=== PATIENT | male | born 1940 | race Caucasian/White ===

== ENCOUNTER 2019-06-20 09:57 | Inpatient (IN) | payer MEDICARE, SELFPAY ==
[2019-06-06 08:45] VITALS: BMI 26.4
[2019-06-20] VITALS (16 sets, daily range): BP systolic 106–144; BP diastolic 66–99; PULSE 45–92; RESP 12–20; TEMP 35.9–37.1; O2SAT 92–100; BMI 26.4
--- NOTE | 2019-06-20 | DI.RAD.S_ITS ---
PROCEDURE: XR HIP W PEL IF DONE RT 4V INDICATIONS: ANTERIOR RT HIP ARTHROPLASTY TECHNIQUE: 2 view(s) of the hip acquired. COMPARISON: [facility] [place], [place], XR PELVIS WITH BILATERAL LATERAL HIPS, 03/28/2019, 14:50. FINDINGS: Bones: Patient is status post right hip arthroplasty, with hardware components in expected positions. The hip joint appears congruent. The visualized bony structures appear intact. Soft tissues: Overlying postoperative changes are noted and there is normal alignment after reported right hip arthroplasty. No suspicious soft tissue densities. IMPRESSION: Reported right hip arthroplasty, normal alignment established. Dictated by: Benoit Torrez M.D. on 06/20/2019 at 16:02 Approved by: Benoit Torrez M.D. on 06/20/2019 at 16:04
--- NOTE | 2019-06-20 06:00 | DI.RAD.S_ITS ---
PROCEDURE: XR HIP W PEL IF DONE RT 2V INDICATIONS: post op films TECHNIQUE: AP pelvis and lateral view of the right hip acquired. COMPARISON: [facility], CR, XR HIP W PEL IF DONE RT 4V, 06/20/2019, 15:00. [facility], CR, XR PELVIS WITH BILATERAL LATERAL HIPS, 03/28/2019, 14:50. FINDINGS: Bones: Patient is status post right hip arthroplasty, with hardware components in expected positions. The hip joint appears congruent. The visualized bony structures appear intact. Soft tissues: Overlying postoperative changes are noted. No suspicious soft tissue densities. IMPRESSION: Right hip arthroplasty with prosthesis in anatomic alignment. Dictated by: Oliva Jimenez M.D. on 06/20/2019 at 17:31 Approved by: Oliva Jimenez M.D. on 06/20/2019 at 17:32
[2019-06-20] MEDS: VANCOMYCIN 1,000 MG/200 ML PIGGYBACK 200 MG IV (10:45)
[2019-06-20] MEDS: ACETAMINOPHEN 325 MG TABLET 975 MG PO (10:57)
[2019-06-20] MEDS: MELOXICAM 7.5 MG TABLET 15 MG PO (10:57)
[2019-06-20] MEDS: PREGABALIN 75 MG CAPSULE PO (10:57)
[2019-06-20] MEDS: LACTATED RINGERS 1,000 ML 42 ML IV ×2 (10:57→14:55)
--- NOTE | 2019-06-20 11:23 | PM.PREOP ---
Pre-operative Note Interval Note History & Physical reviewed/Exam performed by Physician: Yes Changes to H&P: No
--- NOTE | 2019-06-20 11:24 | PM.OP.1 ---
Operative Date/Time/Diagnoses Date of procedure: 06/20/19 Time of procedure: 12:33 Pre-op diagnosis: Right hip osteoarthritis Post-op diagnosis: same Procedure & Clinicians Procedure: Right total hip arthroplasty anterior approach Indications: The patient has had progressively worsening right hip pain with radiographic changes consistent with arthritis. Non-operative management has failed and the patient has requested total hip replacement. The risks, benefits and alternatives to surgery were discussed with the patient prior to proceeding. Risks discussed included, but were not limited to, failure to relieve pain, leg length discrepancy, dislocation, stiffness, infection, nerve damage, deep venous thrombosis, pulmonary embolism, stroke, coma, heart attack, permanent paralysis and , as well as the potential need for eventual revision of the prosthetic. Surgeon: Heidi Doss Pulmonary Function Technologist: Wale Chang Anesthesia Type: General and Spinal Operative Notes Findings: Severe right hip osteoarthritis, good stability, adequate bone Closure Type: primary Specimen(s): none sent Prosthetic devices, grafts, tissues, transplants, or devices: Doss [employer]hew size 6 high offset anthology, R3 56, 36 by -3 oxinium Estimated Blood Loss (mL): 250 Blood products transfused: none Procedure in detail: The patient was brought to the operating room. Patient was carefully positioned in the supine position. Time-out was performed and antibiotics were given. Anesthesia was induced. She was positioned in the on the table in order to allow hyperextension of the hip. The right lower extremity was prepped and draped in a standard sterile fashion. An anterior right hip incision was made 1 fingerbreadth lateral to the anterior superior iliac spine and extended distally towards the greater trochanter. Dissection was carried out through skin and subcutaneous tissues. The skin and subcutaneous tissues were carefully injected with Marcaine. Superficial hemostasis was achieved. The fascia over the tensor fascia fran was defined and incised with a knife. Two Allis clamps were used to grasp the fascia. Tensor fascia fran was retracted laterally. A gelpi retractor was placed. Dissection was carried out down along the neck. The circumflex vessels were carefully identified and cauterized with the Aqua Mantis. There was good visualization of the femoral neck. A Cobra was placed superior to the neck and the gluteus fibers were carefully stripped from that superior aspect of the capsule. A 2nd retractor was placed along the inferior aspect of the neck. The rectus insertion along the capsule was partially released. A 3rd retractor that was then gently placed over the rim of the acetabulum under the rectus. Capsule was carefully incised and released from the intertrochanteric line circumferentially superior to the mid sagittal line and inferiorly to the mid sagittal line until the lesser trochanter was palpable. A tag stitch was placed both in the superior and inferior limb of the capsular insertion. Along the acetabulum capsule was also released up to the mid sagittal 12:00 position. A portion of the labrum was resected. A saw was used to perform an osteotomy at the level of the intertrochanteric line and the junction of the superior femoral neck leaving approximately 1 finger breath of residual inferior neck above the lesser trochanter. A 2nd cut was made along the femoral neck at the base of the head and a napkin ring of neck was removed. Corkscrew was placed in the femoral head and the head was removed without difficulty. Retractors were then repositioned around the acetabulum. Residual labrum was resected and additional osteophytes were removed. A reamer that was 4 mm below the templated size was placed by hand in the acetabulum and it was reamed to centralize the acetabulum. It was then reamed up to 2 under the templated size and fluoroscopy was brought in to confirm the position of the reaming and depth of reaming. I reamed 1 under the anticipated size and touched the rim with line to line reaming. A trial cup was placed and noted that it was appropriately sized and fluoroscopy confirmed position and depth. The component was open and inserted without difficulty fluoroscopic imaging was used to confirm that the cup had been adequately seated and was well positioned. Neutral poly trial liner was placed. The cup was tested and noted to be stable. Attention was then directed to the femur. The femur was gently hyperextended additional capsular release was performed as needed in order to allow adequate visualization of the proximal femur with elevation of the femur. Patient was placed in a hyperextended slightly adducted position with maximum external rotation. Box osteotome was used to check for any residual neck as well as sclerotic bone along the trochanter. [place] pepper was placed in the femur. Additional broaching was performed. Canal finder was used to determine the alignment of the canal and position. Size 1 broach was placed. The canal was then appropriately broached. It was fairly tight and I specifically lateralized the femur There was no impingement laterally. There was adequate stability of the broach and serial advancement of the broach without excessive impingement. Specific attention was directed at avoiding varus attempting to direct the distal aspect of the broach more anteriorly and avoiding excessive anteversion. Trial reduction showed acceptable range of motion, good stability, no posterior impingement, zoroastrian of leg length and appropriate lateral shuck. I also hyperflexed the hip and checked that there was no impingement anteriorly and there was good stability with flexion, adduction and internal rotation. Marcaine and Exparel were injected. The stem was placed without difficulty. Repeat trial reduction and x-ray showed acceptable overall position, length, and no evidence of the femoral fracture. Final head was placed. Wound was meticulously irrigated with normal saline. The hip was reduced and additional Exparel and Marcaine were injected. The capsule was closed with interrupted nonabsorbable sutures. The fascia of the tensor was closed with interrupted and running Vicryl. No drain was placed. Any tensor fascia fran muscle that appeared to be contused or injured which was a minimal amount was carefully resected. Capsule around the tensor was injected with Exparel and Marcaine. The skin was closed with barbed stitches for the subcutaneous tissue and skin. We also used surgical glue. The wound was dressed sterilely. Brief Betadine soak was also used and was meticulously irrigated with normal saline. Patient was transferred to recovery room in satisfactory condition. Complications: none Post-operative Condition: stable Disposition: Acute Care Plan for aftercare: The patient will be maintained on a standard total hip replacement protocol with weight bearing as tolerated and anterior hip precautions. The patient will receive Aspirin and sequential compression devices for DVT prophylaxis. The patient will be discharged home when safe for the home environment.
[2019-06-20] MEDS: CEFAZOLIN 2 GM/100 ML FROZ.PIGGY IV ×2 (12:30→20:48)
--- NOTE | 2019-06-20 13:03 | SUR.OPER ---
Supine on padded [place] table with bilateral legs secured in padded positioning boots and suspended in positioning spars, operative leg in traction per surgeon. Head on one pillow. Arm on non-operative side secured on padded armboard <90 degrees abduction. Arm on operative side padded and resting across chest then secured with tape over sheet. Padded perineal post in place per surgeon.
[2019-06-20] MEDS: TRANEXAMIC ACID 1,000 MG VIAL 1000 MG IV ×2 (13:08→15:29)
[2019-06-20] MEDS: BUPIVACAINE LIPOSOME 266 MG/20 ML VIAL INJ (13:08)
[2019-06-20] MEDS: BUPIVACAINE 0.25% W/ EPI (PF) 10 ML VIAL 20 ML INJ (13:08)
[2019-06-20] MEDS: SODIUM CHLORIDE IRRIG SOLUTION 250 ML, POVIDONE-IODINE SPONGE STICKS 1 APPLIC IRR (15:42)
--- NOTE | 2019-06-20 17:43 | PC.NURSE ---
Pt arrived to room 216. RLE cool to touch but reports sensation. Able to wiggle toes and has PPP. Denies pain. A/O. VSS. 2L NC sats 98-100%. Oriented to room and call system. Urinal placed at bedside. Dietary notified of pt's arrival and meal tray requested. Supportive dtr at bedside.
[2019-06-20] MEDS: LACTATED RINGERS 1,000 ML 125 ML IV (18:27)
[2019-06-20] MEDS: SIMVASTATIN 40 MG TABLET PO (18:28)
[2019-06-20] MEDS: METOPROLOL ER 50 MG TABLET PO (18:28)
[2019-06-20] MEDS: ACETAMINOPHEN 325 MG TABLET 650 MG PO (20:48)
[2019-06-20] MEDS: DOCUSATE 100 MG CAPSULE PO (20:48)
[2019-06-21] VITALS (9 sets, daily range): BP systolic 104–132; BP diastolic 51–81; PULSE 63–95; RESP 16–17; TEMP 36.5–37.5; O2SAT 95–97
[2019-06-21] MEDS: LACTATED RINGERS 1,000 ML 125 ML IV (02:56)
[2019-06-21] MEDS: CEFAZOLIN 2 GM/100 ML FROZ.PIGGY IV (04:44)
[2019-06-21 06:13] LABS: Hematocrit 39.8 % (41-53); Hemoglobin 13.4 g/dL (13.5-17.5)
[2019-06-21] MEDS: OXYCODONE IR 5 MG TABLET PO ×5 (06:17→21:25)
--- NOTE | 2019-06-21 06:31 | PC.NURSE ---
NOC Note: Pt is alert, drsg DCI, CMS +, PP++ and patient did not have pain until approx 6am, PRN oxycodone given at that time. Pt has been using the urinal while in bed.
[2019-06-21] MEDS: DOCUSATE 100 MG CAPSULE PO ×2 (09:54→21:25)
[2019-06-21] MEDS: PANTOPRAZOLE 20 MG TABLET PO (09:54)
[2019-06-21] MEDS: ACETAMINOPHEN 325 MG TABLET 650 MG PO ×3 (09:55→21:25)
--- NOTE | 2019-06-21 10:25 | DI.CT.S_ITS ---
PROCEDURE: CT PEL WO CON INDICATIONS: Rule out lesser trochanteric fracture, po R RHONDA. TECHNIQUE: Noncontrast 3 mm axial sections acquired through the bony pelvis, with coronal and sagittal reformatting. COMPARISON: [facility], CR, XR HIP W PEL IF DONE RT 2V, 06/20/2019, 16:24. [facility] [place], CR, XR PELVIS WITH BILATERAL LATERAL HIPS, 03/28/2019, 14:50. [facility], CR, XR HIP W PEL IF DONE RT 4V, 06/20/2019, 15:00. FINDINGS: Image quality: Excellent. Bones: Normal alignment after right total hip arthroplasty. No postoperative hematoma. Soft tissues: Somewhat vertically oriented near vertically oriented postoperative gas is identified both medially and laterally within the soft tissues, adjacent to the operative bed on the right. This also can be seen on prior postoperative and intraoperative plain film imaging. IMPRESSION: The initial digital acquisition imaging immediately at the termination of the operative procedure had shown small amounts of vertically oriented gas in the intramuscular fascial planes adjacent to the operative bed. This is an expected finding. The subsequent 2 views, postoperative, had raised concern for possible fracture along the base of the lesser trochanter. That area and elsewhere along the operative bed is well visualized by CT scanning and no fractures found to small amounts of vertically oriented gas are again noted in the intramuscular fascial planes of the adjacent operative bed. It is possible that a linear gas band within the soft tissues produced the lucency mimicking a fracture at the base of the lesser trochanter. Dictated by: Benoit Torrez M.D. on 06/21/2019 at 10:59 Approved by: Benoit Torrez M.D. on 06/21/2019 at 11:06
--- NOTE | 2019-06-21 10:27 | P.PN_ITS ---
Subjective Subjective Date Patient Seen: 06/21/19 Time Patient Seen: 10:27 Interval history: Hospital day 2, postop day 1 following right anterior total hip arthroplasty by Dr. Doss. He has remained stable postoperatively. He has not been out of bed yet and has not had physical therapy. Pain controlled with oxycodone 5 mg. On his postop x-ray there was noted to be a irregular lucency to the lesser trochanteric area suggestive of fracture. This was reviewed by Dr. Doss in myself. There was no such lucency noted on any of the other x-rays. Exam Vital Signs (past 8 hours): - 06/21/19 04:30 06/21/19 07:17 06/21/19 08:00 Temperature 97.7 F 97.8 F Pulse Rate 63 73 Respiratory Rate 17 Blood Pressure 112/51 L 132/81 Pulse Oximetry 95 95 97 06/21/19 10:24 Temperature Pulse Rate Respiratory Rate 16 Blood Pressure Pulse Oximetry 97 Oxygen Delivery Method Room Air Oxygen Flow Rate 1 Narrative Exam Narrative: Alert, oriented in no acute distress sitting on the edge of bed with PT. Legs. Aquacel dressing to right anterior hip is dry without drainage or inflammation. Areas of bruising to the area. No calf pain or swelling. P ulses symmetrical. Objective Labs Result Diagrams: 06/21/19 05:44 Labs: Laboratory Results - last 24 hr 06/21/19 05:44 Hgb 13.4 L Hct 39.8 L Assessment & Plan Post-op Postoperative Procedures: Procedures Operation Date: 06/20/19 12:15 Actual Procedures Side Surgeon p Total Hip Arthroplasty/Anterior Approach Right Heidi Doss MD Plan: Will obtain pelvic CT scan without contrast to rule out lesser trochanteric fracture to determine further therapy and weight-bearing status. At this time he will be 25% weight-bearing to the right leg until cleared by CT scan. He is scheduled go to [facility] in [place]. He will restart his Xarelto today. If his CT scan is negative for fracture he may gradually increase his weight-bearing and activity as tolerated. Quality VTE Deep Vein Thrombosis/Pulmonary Embolism Present on Admission: No
--- NOTE | 2019-06-21 12:05 | PT.IIE ---
Current Diagnoses Unilateral primary osteoarthritis, right hip (06/20/19) Surgery Performed Operation Date: 06/20/19 12:15 Actual Procedures p Total Hip Arthroplasty/Anterior Approach(Right) - Heidi Doss MD Surgical History (Last Updated 06/06/19 @ 08:51 by Rachelle Meraz, RN) History of arthroscopy of both knees (Acute) History of lumbar spinal fusion (Acute) S/P left unicompartmental knee replacement (Acute) Medical History (Last Updated 06/06/19 @ 09:20 by Rachelle Meraz RN) A-fib (Acute) Anxiety (Acute) Depression (Acute) GERD (gastroesophageal reflux disease) (Acute) Hearing loss (Acute) HLD (hyperlipidemia) (Acute) HTN (hypertension) (Acute) Osteoarthritis (Acute) TIA (transient ischemic attack) (Acute ~2008) Physical Therapy Inpatient Evaluation/Re-Eval M1 PT/OT-IP Prior Functional Status Start: 06/21/19 08:15 Freq: NEEDED Status: Active Protocol: Document 06/21/19 08:46 Bubba (Rec: 06/21/19 11:08 Bubba [id number]) Medical Review Prior Functional Status Medical History Reviewed Yes Diet/Fluid Consistency Regular Communication No noted cognitive deficits. Pt is mildly hard of hearing. Able to make needs known. Mobility and Gait Pt reports I with mobility and gait prior to surgery with limited tolerance d/t R hip pain. Pt reports he usually didn't use an AD but did occasionally use a SPC d/t pain. Activities of Daily Living and IADL's Pt reports I with ADLs and IADLs but limited tolerance d/ t pain prior to surgery. Prior Functional Level (Other details) Pt was driving prior to surgery. Social History Household Members children Living Arrangements House Number of Floors (Floors) One Floor Number of Stairs To Enter/Railing? 3 A[address]LA[address] house (R railing ascending to enter in front, B railings to enter in back) 1 [address] trailer (handles B) where pt typically sleeps No ADELAIDA garage Home Environment High Toilet,Walk in Shower,Tub /Shower Home Equipment Straight Cane,Raised Toilet Seat w/Armrests,Hand Held Shower Employment Status Retired Additional Social History Comment Pt lives at home in [facility] with his adult daughter and 3 young grandchildren. Pt lives at one-story home but typically sleeps in small trailer behind house which has 1 A[place]LA[address]. Pt states he has set up and bed and bathroom in the garage, which has no ADELAIDA, to stay in for a short time as he recovers from surgery. Pt notes that his daughter works brazing machine setter but he has 2 other daughters living nearby that can assist him as needed as well. Pt states he has a SPC and a pickup walker at home but he can ask his daughters to pickling solution maker wheels for hip pickup walker. M2 PT-IP Current Condition Start: 06/21/19 08:15 Freq: NEEDED Status: Active Protocol: Document 06/21/19 08:46 KRYSTYNA (Rec: 06/21/19 11:08 KRYSTYNA [id number]) Physical Therapy Current Condition Current Condition Evaluation Date 06/21/19 Treatment Diagnosis R RHONDA, impaired bed mobility, difficulty walking, limited activity fannie Onset Date 04/20/19 Precautions Anterior Hip Precautions No Hip Extension,No Hip External Rotation Weight Bearing Status Weight Bearing Status Partial Weight Bearing Allowed Weight Bearing Amount (enter % 25% WBing R LE or #) (%) LIAN Hill verbal orders at start of session for 25% WBing on R LE until cleared by CT d/t potential lesser trochanteric fx M3 PT-IP Subjective Start: 06/21/19 08:15 Freq: NEEDED Status: Active Protocol: Document 06/21/19 08:46 JDejon (Rec: 06/21/19 11:08 KRYSTYNA [id number]) Subjective Physical Therapy Visit Type Type Initial Evaluation Visit Start Time 08:46 Visit Stop Time 09:28 Total Visit Minutes 42 Notes IE led by EVI Moctezuma, supervised by PT Avery Number of FABRICATOR ARTIFICIAL BREAST Visits 0 Physical Therapy Visit Comments Patient Comments My hip is bothering me but it isn't horrible. I thought I might be able to go home today but it seems like maybe tomorrow. Patient Goals Return home Therapy Pain Assessment Pain When Pain Assessed At Rest Pain Present Pain Present Pain Reported Location Right Hip Intensity 5 Scale Used Numeric (1 - 10) Description Aching,Acute,Sharp,With Movement Pain Behaviors Wincing Pain Management Techniques Distraction,Timing of Activity with Medications M4 PT-IP Mobility and Gait Start: 06/21/19 08:15 Freq: NEEDED Status: Active Protocol: Document 06/21/19 08:46 JDejon (Rec: 06/21/19 11:08 KRYSTYNA [id number]) PT-Bed Mobility Assessment Supine to Sit Supine to Sit Moderate Assistance,2 Person Assistance Scooting Scooting to Edge of Bed Moderate Assistance PT-Transfer Assessment Sit to and From Stand Sit to and from Stand Minimal Assistance,Moderate Assistance,1 Person Assistance ,Use of Upper Extremities Equipment Transfer Assistive Device Gait Belt,Front Wheeled Walker Orthotic/Prosthetic Devices or Brace: No Transfers Transfer Destination Chair Transfer Technique ambulate with FWW Transfer Ability Level of Assist Minimal Assistance,1 Person Assistance,Use of Upper Extremities Comments Mobility Comments Pt in bed upon assessment. Resting BP 134/71, pt denies nausea or dizziness during mobility. Educated pt on ant hip precautions and pt verbalized understanding. Pt required mod Ax2 for supine to sit and scooting to EOB with max cuing to use UEs to assist with mobility. Educated pt on WBing restriction of 25% on R LE. Instructed pt in stagger stance for sit to/from stand to maintain WBing restriction. Pt required min A to stand. Pt ambulated within room ~10 ft with small steps and step to gait pattern, mostly CGA but min A when turning for stability. Pt required mod cuing to cont WBing mostly through UEs and only place 25% of weight through R LE. Pt required mod A for stand to sit with pillow on chair to raise seat and inc'd time to sit. Pt left in chair with call lights and needs within reach and chair alarm armed. Notified ORION Melvin of new WBing orders and transfer method. Gait Assessment Gait Gait Assistance Required: Contact Guard Assist,Minimum Assistance Distance (Feet) 10 Able to Maintain Weight Bearing Status Yes During Gait Assistive Devices Assistive Device Gait Belt,Front Wheeled Walker Orthotic/Prosthetic Devices or Brace: No Gait Deviations General Gait Pattern Antalgic,Decreased Stride Length,Decreased Feet Clearance,Flexed Trunk,Step-to Gait Factors Limiting Gait Function Factors Limiting Gait Function Decreased Activity Tolerance, Decreased Strength,Difficulty Following Directions,Limited Range of Motion,Pain,Poor Balance,Poor Safety Awareness Comments Gait Comments see mobility comments Stair Climbing Assessment Comments Stair Climbing Comments not assessed PT-Balance Assessment Sitting Balance and Reactions Static Sitting Balance Ability Good Dynamic Sitting Balance Ability Fair Standing Balance and Reactions Static Standing Balance Ability Good Dynamic Standing Balance Ability Fair Device Used FWW M5 PT-IP Objective Assessments Start: 06/21/19 08:15 Freq: NEEDED Status: Active Protocol: Document 06/21/19 08:46 JG (Rec: 06/21/19 11:08 Bubba [id number]) Orientation Orientation/Cognition Level of Alertness Alert Orientation Name,Day of Week,Place, Situation Language Function Ability Hard of Hearing Safety Awareness Decreased Safety Awareness Memory Description No Deficits Noted Comments Pt is mildly hard of hearing. Pt seemed mildly confused during session and required max cuing for use of UE assist during bed mobility and ambulation. Pt required frequent cuing throughout session d/t dec'd safety awareness. Gross Range of Motion Upper Extremity ROM Assessment Within Functional Limits Lower Extremity ROM Assessment Right Impaired Strength Upper Extremity Strength Assessment Within Functional Limits Lower Extremity Strength Assessment Right Impaired Hip 4 Knee 4 Ankle 4 Sensation Assessment Sensation Gross Sensation WNL Muscle Tone Muscle Tone WNL Yes M6 PT-IP Treatment Start: 06/21/19 08:15 Freq: NEEDED Status: Active Protocol: Document 06/21/19 08:46 JG (Rec: 06/21/19 11:08 Bubba [id number]) Physical Therapy Treatment Exercises Exercises Ankle Pumps,Heel Slides Education Education Provided Precautions,Weight Bearing Status,Post-Op Packet,Safety Other Treatments Other Treatment Performed Disc benefit of getting wheels to modify pickling solution maker walker at home into FWW, improved ease of movement and safety. Provided pt with list of vendors to acquire wheels for walker. Pt noted that he would ask daughter to look into it. M7 PT-IP Assessment and Plan Start: 06/21/19 08:15 Freq: NEEDED Status: Active Protocol: Document 06/21/19 08:46 JG (Rec: 06/21/19 11:08 Bubba [id number]) PT Summary Assessment and Plan Potential Rehabilitation Potential Good Status of Condition at Evaluation Evolving Summary Impairments Pain,ROM,Strength,Balance, Cognition,Bed Mobility, Transfers,Gait,Activity Tolerance Assessment Summary Pt is mod complexity 78 yo male 1 day s/p R RHONDA anterior approach. Pt required mod Ax2 for bed mobility d/t pain and mild confusion. Pt required no more than mod Ax1 for transfers or ambulation. Pt currently 25% WBing on R LE until CT scan d/t concerns of potential lesser trochanteric fx. Pt required cuing during session to use B UE support to maintain WBing status. PT will cont to assess pt's assist needs after CT scan. PT currently recommends d/c to home with assist from daughter once caregiver training complete and pt medically cleared. Goals Bed Mobility Goal Independent Transfer Goal Independent Gait Goal Independent Gait Distance 150 Days to Meet Goals 5 Frequency of Treatment Frequency Of Treatment Twice a Day Treatment Plan Physical Therapy Treatment Plan Bed Mobility Training,Transfer Training,Gait Training, Therapeutic Exercise,Balance Retraining,Post Op Education, Discharge Planning,Hot or Cold Pack,Neuromuscular Re-ed Other Recommendations and Next Treatment Bed mobility training Focus Stair training as fannie (pt has steps at home but does not need to complete prior to d/c) Recommendations To Nursing Amount of Assist Needed 2 Person Assist Discharge Recommendations PT Discharge Recommendations Home with Assistance,Home with 06/02 Assist,Home Health, Outpatient PT note reviewed by Avery Barrera, PT
--- NOTE | 2019-06-21 12:09 | CM.IDA ---
Initial DCP Assessment Note: Pt is a 78 yo male, resident of [place]. Pt is POD#1 from hip surgery w/ Dr Doss. PCP: Martina Golden Payer: [employer] Medicare Attempted to meet w/pt this morning and he stated he was waiting on results from a CT scan ordered by Ortho to r/o new fx. This SUMO WRESTLER will return to complete assessment later today or tomorrow. Pt expects to return home w/assist from his local dtrs. In review of the chart, fx has now been ruled out by CT and WBing status confirmed WBAT, PT has assessed and it is likely pt will be able to safely return home w/family to assist 06/02. This SUMO WRESTLER will follow closely and r/o need for HH closer to [place]. FATOU Hargrove Discharge Planning/Care Management CM Discharge Assessment Start: 06/21/19 12:02 Freq: Status: Active Protocol: Document 06/21/19 12:02 ANDREEA (Rec: 06/21/19 12:09 ANDREEA [id number]) Discharge Planning Assessment Assigned Child Support Agent FATOU Ramos DPOA/Assigned Designee Name jolanta Lockwoodr , Anjana (daughter) Contact Information Taras: [phone] Anjana: [phone] Advance Directives? Yes Advance Directives on File No History Provided By Patient,Medical Record Prior Living Arrangements House Household Members children Independent with ADL's Yes: cane Is patient alert and oriented? Yes Comment Needs further assessment of [place] needs Discharge Plan Home Transportation Arrangement Family Review Status In Process
--- NOTE | 2019-06-21 12:12 | PT-IP ANOTE ---
Lazaro Hill P.A-C just updated pt new CT scan that pt is cleared for lesser trochanter fx. Changed WB status to WBAT.
--- NOTE | 2019-06-21 14:33 | PC.NURSE ---
Day Shift- Pt A&OX4, able to make needs known using call light. Pain controlled with prn Oxycodone, rates 4/10 rest and 5-6/10 movement. Oxycodone prn given X2 at 0955 & 1330 prior to PT session. Anterior hip aquacel dressing CDI, CMS+, PPP, ice pack intermittently. Pt went for CT scan at 1035 via bed. Per LIAN Lange at 1155, pt will be WBAT now. Pt aware. Plan for discharge tomorrow pending PT sessions, pt agreeable. No other voiced concerns.
[2019-06-21] MEDS: SIMVASTATIN 40 MG TABLET PO (16:36)
[2019-06-21] MEDS: RIVAROXABAN 10 MG TABLET 20 MG PO (16:36)
[2019-06-21] MEDS: METOPROLOL ER 50 MG TABLET PO (16:37)
--- NOTE | 2019-06-21 16:47 | PT.IPTN ---
Current Diagnoses Unilateral primary osteoarthritis, right hip (06/20/19) Surgery Performed Operation Date: 06/20/19 12:15 Actual Procedures p Total Hip Arthroplasty/Anterior Approach(Right) - Heidi Doss MD Physical Therapy Treatment Note M2 PT-IP Current Condition Start: 06/21/19 08:15 Freq: NEEDED Status: Active Protocol: Document 06/21/19 08:46 JG (Rec: 06/21/19 11:08 JG [id number]) Physical Therapy Current Condition Current Condition Evaluation Date 06/21/19 Treatment Diagnosis R RHONDA, impaired bed mobility, difficulty walking, limited activity fannie Onset Date 04/20/19 Precautions Anterior Hip Precautions No Hip Extension,No Hip External Rotation Weight Bearing Status Weight Bearing Status Partial Weight Bearing Allowed Weight Bearing Amount (enter % 25% WBing R LE or #) (%) LIAN Hill verbal orders at start of session for 25% WBing on R LE until cleared by CT d/t potential lesser trochanteric fx M3 PT-IP Subjective Start: 06/21/19 08:15 Freq: NEEDED Status: Active Protocol: Document 06/21/19 14:07 IRENE (Rec: 06/21/19 15:43 IRENE [email or web address]) Subjective Physical Therapy Visit Type Type Treatment Note Visit Start Time 14:07 Visit Stop Time 14:29 Total Visit Minutes 22 Notes Treatment supervised by PAU Traore. Number of SPLINE ROLLING MACHINE JOB SETTER Visits 1 Physical Therapy Visit Comments Patient Comments Pt is agreeable to work with PT and offers that he is experiencing less pain. Patient Goals Return home Therapy Pain Assessment Pain When Pain Assessed During Weight Bearing Pain Present Pain Present Pain Reported Location Right Hip Scale Used hurts a little bit Pain Management Techniques Apply Cold,Re-positioning M4 PT-IP Mobility and Gait Start: 06/21/19 08:15 Freq: NEEDED Status: Active Protocol: Document 06/21/19 14:07 IRENE (Rec: 06/21/19 15:43 IRENE [id number]) PT-Bed Mobility Assessment Supine to Sit Supine to Sit Minimal Assistance,1 Person Assistance,Head of Bed Elevated,Bedrails Sit to Supine Sit to Supine Minimal Assistance,1 Person Assistance Scooting Scooting to Edge of Bed Contact Guard Assistance Scooting Up and Down in Bed Moderate Assistance PT-Transfer Assessment Sit to and From Stand Sit to and from Stand Contact Guard Assistance, Minimal Assistance,1 Person Assistance,Use of Upper Extremities Equipment Transfer Assistive Device Gait Belt,Front Wheeled Walker Orthotic/Prosthetic Devices or Brace: No Transfers Transfer Destination Bed Transfer Technique pt ambulated w/ FWW Transfer Ability Level of Assist Minimal Assistance,1 Person Assistance,Use of Upper Extremities Comments Mobility Comments Pt was in bed upon arrival of PT. Pt was Min A sup<>sit requiring assistance of R LE out of bed. CGA for scooting towards EOB. CGA to Min A for sit<>stand w/ FWW and use of UE. Sit<>sup Min A for R LE guidance. Instructed pt on how to utilize gait belt to self assist R LE. Mod A x2 to scoot pt up in bed. Pt left in bed w/ all needs in reach and SCDs on. Gait Assessment Gait Gait Assistance Required: Contact Guard Assist,Minimum Assistance Distance (Feet) 80 Able to Maintain Weight Bearing Status Yes During Gait Assistive Devices Assistive Device Gait Belt,Front Wheeled Walker Orthotic/Prosthetic Devices or Brace: No Gait Deviations General Gait Pattern Antalgic,Decreased Stride Length,Decreased Feet Clearance,Flexed Trunk Factors Limiting Gait Function Factors Limiting Gait Function Decreased Activity Tolerance, Decreased Strength,Difficulty Following Directions,Limited Range of Motion,Pain,Poor Balance,Poor Safety Awareness Comments Gait Comments Pt ambulated ~80 ft from bed into hallway w/ FWW and CGA. Reported very little pain during ambulation. Cues to not slat pickler FWW when ambulating and to stay inside walker. Pt was able to increase stride length when instructed to focus on heel-toe walking. Stair Climbing Assessment Comments Stair Climbing Comments not assessed PT-Balance Assessment Sitting Balance and Reactions Static Sitting Balance Ability Good Dynamic Sitting Balance Ability Fair Standing Balance and Reactions Static Standing Balance Ability Good Dynamic Standing Balance Ability Fair Device Used FWW M5 PT-IP Objective Assessments Start: 06/21/19 08:15 Freq: NEEDED Status: Active Protocol: Document 06/21/19 08:46 KRYSTYNA (Rec: 06/21/19 11:08 KRYSTYNA [id number]) Orientation Orientation/Cognition Level of Alertness Alert Orientation Name,Day of Week,Place, Situation Language Function Ability Hard of Hearing Safety Awareness Decreased Safety Awareness Memory Description No Deficits Noted Comments Pt is mildly hard of hearing. Pt seemed mildly confused during session and required max cuing for use of UE assist during bed mobility and ambulation. Pt required frequent cuing throughout session d/t dec'd safety awareness. Gross Range of Motion Upper Extremity ROM Assessment Within Functional Limits Lower Extremity ROM Assessment Right Impaired Strength Upper Extremity Strength Assessment Within Functional Limits Lower Extremity Strength Assessment Right Impaired Hip 4 Knee 4 Ankle 4 Sensation Assessment Sensation Gross Sensation WNL Muscle Tone Muscle Tone WNL Yes M6 PT-IP Treatment Start: 06/21/19 08:15 Freq: NEEDED Status: Active Protocol: Document 06/21/19 14:07 IRENE (Rec: 06/21/19 15:43 IRENE [id number]) Physical Therapy Treatment Education Education Provided Weight Bearing Status,Safety M7 PT-IP Assessment and Plan Start: 06/21/19 08:15 Freq: NEEDED Status: Active Protocol: Document 06/21/19 14:07 IRENE (Rec: 06/21/19 15:43 IRENE [id number]) PT Summary Assessment and Plan Potential Rehabilitation Potential Good Status of Condition at Evaluation Evolving Summary Impairments Pain,ROM,Strength,Balance, Cognition,Bed Mobility, Transfers,Gait,Activity Tolerance Assessment Summary Pt showed improvements w/ bed mobility and ambulation this treatment. Min A for sup<>sit and sit<>sup for assistance w/ R LE. CGA for scooting EOB, Mod A x2 for scooting up in bed. Ambulated ~80 ft w/ FWW and cues to stay inside walker and to not pick it up. Increased stride length when reminded to perform heel toe walking. Goals Bed Mobility Goal Independent Transfer Goal Independent Gait Goal Independent Gait Distance 150 Days to Meet Goals 5 Frequency of Treatment Frequency Of Treatment Twice a Day Treatment Plan Physical Therapy Treatment Plan Bed Mobility Training,Transfer Training,Gait Training, Therapeutic Exercise,Balance Retraining,Post Op Education, Discharge Planning,Hot or Cold Pack,Neuromuscular Re-ed Other Recommendations and Next Treatment Bed mobility training Focus Stair training as fannie (pt has steps at home but does not need to complete prior to d/c) Recommendations To Nursing Amount of Assist Needed 1 Person Assist Discharge Recommendations PT Discharge Recommendations Home with Assistance,Home with 24/ Assist,Home Health, Outpatient PT
--- NOTE | 2019-06-21 17:18 | PT.IPTN ---
Current Diagnoses Unilateral primary osteoarthritis, right hip (06/20/19) Surgery Performed Operation Date: 06/20/19 12:15 Actual Procedures p Total Hip Arthroplasty/Anterior Approach(Right) - Heidi Doss MD Physical Therapy Treatment Note M2 PT-IP Current Condition Start: 06/21/19 08:15 Freq: NEEDED Status: Active Protocol: Document 06/21/19 08:46 JG (Rec: 06/21/19 11:08 JG [id number]) Physical Therapy Current Condition Current Condition Evaluation Date 06/21/19 Treatment Diagnosis R RHONDA, impaired bed mobility, difficulty walking, limited activity fannie Onset Date 04/20/19 Precautions Anterior Hip Precautions No Hip Extension,No Hip External Rotation Weight Bearing Status Weight Bearing Status Partial Weight Bearing Allowed Weight Bearing Amount (enter % 25% WBing R LE or #) (%) LIAN Hill verbal orders at start of session for 25% WBing on R LE until cleared by CT d/t potential lesser trochanteric fx M3 PT-IP Subjective Start: 06/21/19 08:15 Freq: NEEDED Status: Active Protocol: Document 06/21/19 14:07 IRENE (Rec: 06/21/19 15:43 IRENE [email or web address]) Subjective Physical Therapy Visit Type Type Treatment Note Visit Start Time 14:07 Visit Stop Time 14:29 Total Visit Minutes 22 Notes Treatment supervised by PAU Traore. Number of SYRUPER Visits 1 Physical Therapy Visit Comments Patient Comments Pt is agreeable to work with PT and offers that he is experiencing less pain. Patient Goals Return home Therapy Pain Assessment Pain When Pain Assessed During Weight Bearing Pain Present Pain Present Pain Reported Location Right Hip Scale Used hurts a little bit Pain Management Techniques Apply Cold,Re-positioning M4 PT-IP Mobility and Gait Start: 06/21/19 08:15 Freq: NEEDED Status: Active Protocol: Document 06/21/19 14:07 IRENE (Rec: 06/21/19 15:43 IRENE [id number]) PT-Bed Mobility Assessment Supine to Sit Supine to Sit Minimal Assistance,1 Person Assistance,Head of Bed Elevated,Bedrails Sit to Supine Sit to Supine Minimal Assistance,1 Person Assistance Scooting Scooting to Edge of Bed Contact Guard Assistance Scooting Up and Down in Bed Moderate Assistance PT-Transfer Assessment Sit to and From Stand Sit to and from Stand Contact Guard Assistance, Minimal Assistance,1 Person Assistance,Use of Upper Extremities Equipment Transfer Assistive Device Gait Belt,Front Wheeled Walker Orthotic/Prosthetic Devices or Brace: No Transfers Transfer Destination Bed Transfer Technique pt ambulated w/ FWW Transfer Ability Level of Assist Minimal Assistance,1 Person Assistance,Use of Upper Extremities Comments Mobility Comments Pt was in bed upon arrival of PT. Pt was Min A sup<>sit requiring assistance of R LE out of bed. CGA for scooting towards EOB. CGA to Min A for sit<>stand w/ FWW and use of UE. Sit<>sup Min A for R LE guidance. Instructed pt on how to utilize gait belt to self assist R LE. Mod A x2 to scoot pt up in bed. Pt left in bed w/ all needs in reach and SCDs on. Gait Assessment Gait Gait Assistance Required: Contact Guard Assist,Minimum Assistance Distance (Feet) 80 Able to Maintain Weight Bearing Status Yes During Gait Assistive Devices Assistive Device Gait Belt,Front Wheeled Walker Orthotic/Prosthetic Devices or Brace: No Gait Deviations General Gait Pattern Antalgic,Decreased Stride Length,Decreased Feet Clearance,Flexed Trunk Factors Limiting Gait Function Factors Limiting Gait Function Decreased Activity Tolerance, Decreased Strength,Difficulty Following Directions,Limited Range of Motion,Pain,Poor Balance,Poor Safety Awareness Comments Gait Comments Pt ambulated ~80 ft from bed into hallway w/ FWW and CGA. Reported very little pain during ambulation. Cues to not turkey picker FWW when ambulating and to stay inside walker. Pt was able to increase stride length when instructed to focus on heel-toe walking. Stair Climbing Assessment Comments Stair Climbing Comments not assessed PT-Balance Assessment Sitting Balance and Reactions Static Sitting Balance Ability Good Dynamic Sitting Balance Ability Fair Standing Balance and Reactions Static Standing Balance Ability Good Dynamic Standing Balance Ability Fair Device Used FWW M5 PT-IP Objective Assessments Start: 06/21/19 08:15 Freq: NEEDED Status: Active Protocol: Document 06/21/19 08:46 KRYSTYNA (Rec: 06/21/19 11:08 KRYSTYNA [id number]) Orientation Orientation/Cognition Level of Alertness Alert Orientation Name,Day of Week,Place, Situation Language Function Ability Hard of Hearing Safety Awareness Decreased Safety Awareness Memory Description No Deficits Noted Comments Pt is mildly hard of hearing. Pt seemed mildly confused during session and required max cuing for use of UE assist during bed mobility and ambulation. Pt required frequent cuing throughout session d/t dec'd safety awareness. Gross Range of Motion Upper Extremity ROM Assessment Within Functional Limits Lower Extremity ROM Assessment Right Impaired Strength Upper Extremity Strength Assessment Within Functional Limits Lower Extremity Strength Assessment Right Impaired Hip 4 Knee 4 Ankle 4 Sensation Assessment Sensation Gross Sensation WNL Muscle Tone Muscle Tone WNL Yes M6 PT-IP Treatment Start: 06/21/19 08:15 Freq: NEEDED Status: Active Protocol: Document 06/21/19 14:07 IRENE (Rec: 06/21/19 15:43 IRENE [email or web address]) Physical Therapy Treatment Education Education Provided Weight Bearing Status,Safety M7 PT-IP Assessment and Plan Start: 06/21/19 08:15 Freq: NEEDED Status: Active Protocol: Document 06/21/19 14:07 IRENE (Rec: 06/21/19 15:43 IRENE [email or web address]) PT Summary Assessment and Plan Potential Rehabilitation Potential Good Status of Condition at Evaluation Evolving Summary Impairments Pain,ROM,Strength,Balance, Cognition,Bed Mobility, Transfers,Gait,Activity Tolerance Assessment Summary Pt showed improvements w/ bed mobility and ambulation this treatment. Min A for sup<>sit and sit<>sup for assistance w/ R LE. CGA for scooting EOB, Mod A x2 for scooting up in bed. Ambulated ~80 ft w/ FWW and cues to stay inside walker and to not pick it up. Increased stride length when reminded to perform heel toe walking. Goals Bed Mobility Goal Independent Transfer Goal Independent Gait Goal Independent Gait Distance 150 Days to Meet Goals 5 Frequency of Treatment Frequency Of Treatment Twice a Day Treatment Plan Physical Therapy Treatment Plan Bed Mobility Training,Transfer Training,Gait Training, Therapeutic Exercise,Balance Retraining,Post Op Education, Discharge Planning,Hot or Cold Pack,Neuromuscular Re-ed Other Recommendations and Next Treatment Bed mobility training Focus Stair training as fannie (pt has steps at home but does not need to complete prior to d/c) Recommendations To Nursing Amount of Assist Needed 1 Person Assist Discharge Recommendations PT Discharge Recommendations Home with Assistance,Home with 24/ Assist,Home Health, Outpatient PT Reviewed by Eugenie Hunt PTA
--- NOTE | 2019-06-21 20:18 | PC.NURSE ---
Assumed care of pt at 1500. Pt resting in bed during bedside hand-off. Drsg c/d/i. CMS+. Plan to get up to chair for dinner but pt changed mind and declined to transfer. PO analgesics effective. Calling appropriately for needs.
[2019-06-21] MEDS: SODIUM CHLORIDE 0.9% FLUSH 10 ML IV (21:26)
[2019-06-22] VITALS (7 sets, daily range): BP systolic 101–128; BP diastolic 57–92; PULSE 78–100; RESP 16–18; TEMP 36.2–37.5; O2SAT 92–97
[2019-06-22] MEDS: OXYCODONE IR 5 MG TABLET PO ×4 (06:37→16:52)
--- NOTE | 2019-06-22 09:16 | P.DS_ITS ---
History of Present Illness History of Present Illness Date Patient Seen: 06/22/19 Time Patient Seen: 09:19 Chief complaint: [id number] R Total Hip Arthroplasty/Anterior Approach Narrative: The patient has had progressively worsening right hip pain with radiographic changes consistent with arthritis. Non-operative management has failed and the patient has requested total hip replacement. The risks, benefits and alternatives to surgery were discussed with the patient prior to proceeding. Risks discussed included, but were not limited to, failure to relieve pain, leg length discrepancy, dislocation, stiffness, infection, nerve damage, deep venous thrombosis, pulmonary embolism, stroke, coma, heart attack, permanent paralysis and , as well as the potential need for eventual revision of the prosthetic. Discharge Providers Provider Date of admission: 06/20/19 09:57 Discharge Date: 06/22/19 Consults: 06/20/19 06:00 Consult to Anesthesiology Routine Comment: Consulting Provider: Anesthesiologist Reason for consultation: Regional block for post operative pain control 06/20/19 17:31 Consult to Discharge Planning Routine Comment: Consult to Physical Therapy Evaluate & Treat Comment: Physician Instructions: post op RHONDA protocol Consult to Respiratory Therapy Evaluate & Treat Comment: Physician Instructions: Evaluate and treat Discharge provider: Renetta Haley PA-C Summary Hospital Course Discharge Diagnosis: s/p right total hip arthroplasty anterior approach AFib Hypertension Hyperlipidemia Cerebrovascular accident Reflux Hospital Course: Jose was admitted for right total hip arthroplasty anterior approach with Dr. Doss. On postoperative x-ray there was concern for a possible fracture at the lesser trochanter. CT scan was performed and there was no fracture found. Patient taking Xarelto for DVT prophylaxis. He has been mobilizing with physical therapy throughout his stay. He is aware of his anterior hip precautions. He was eating and voiding without difficulty or assistance. Status at Discharge Functional status at discharge: uses cane/walker Exam Vital Signs (past 8 hours): - 06/22/19 05:45 06/22/19 08:00 Temperature 97.2 F L 99.5 F Pulse Rate 82 86 Respiratory Rate 16 17 Blood Pressure 126/92 H 101/68 Pulse Oximetry 92 94 Oxygen Delivery Method Room Air Oxygen Flow Rate 0 Narrative Exam Narrative: Patient is sitting up in bed in no acute distress. He is alert and oriented x3. Calves are soft, compressible, nontender bilaterally. Pulses are symmetrical. He is able to actively dorsiflex and plantar flex. Sensation intact to light touch throughout bilateral lower extremities. He is requiring oxycodone for pain management. Objective Labs Result Diagrams: 06/21/19 05:44 Discharge Plan Discharge Plan Patient Disposition: Home Discharge orders & Medications Prescriptions: New docusate sodium [DOK] 100 mg Capsule 100 mg PO BID Qty: 30 RF: 0 oxycodone 5 mg Tablet 5 mg PO Q3HR PRN (Reason: Pain, Moderate (4-6)) Qty: 60 RF: 0 Continued metoprolol succinate 50 mg Tablet Extended Release 24 Hr 50 mg PO QPM RF: 0 simvastatin 40 mg Tablet 40 mg PO QPM RF: 0 acetaminophen [Tylenol Arthritis Pain] 650 mg Tablet Extended Release 1,300 mg PO TID RF: 0 omeprazole 20 mg Capsule,Delayed Release(Dr/Ec) 20 mg PO DAILY RF: 0 Xarelto 20 mg Tablet 20 mg PO QPM RF: 0 Follow up/Referrals: Heidi Doss MD [Physician] - (refer to [facility] booklet for first postoperative follow up appointment) Diet/Activity/Treatments Activity: Anterior hip precautions Skin/Wound/Dressing Care Report to your healthcare provider any signs of infection, such as:: chills, fever and increased pain Dressing: leave in place until appointment. Visit Report/Discharge Packet Instructions: DI for Hip Replacement, How to Prevent Falls, DI for Postoperative Pain Quality VTE Deep Vein Thrombosis/Pulmonary Embolism Present on Admission: No
[2019-06-22] MEDS: SODIUM CHLORIDE 0.9% FLUSH 10 ML IV ×2 (09:59→21:15)
[2019-06-22] MEDS: POLYETHYLENE GLYCOL 3350 17 GM POWD.PACK PO (10:07)
[2019-06-22] MEDS: ACETAMINOPHEN 325 MG TABLET 650 MG PO ×2 (10:07→21:15)
[2019-06-22] MEDS: DOCUSATE 100 MG CAPSULE PO ×2 (10:08→21:15)
[2019-06-22] MEDS: PANTOPRAZOLE 20 MG TABLET PO (10:08)
--- NOTE | 2019-06-22 11:06 | PT.IPTN ---
Current Diagnoses Unilateral primary osteoarthritis, right hip (06/20/19) Surgery Performed Operation Date: 06/20/19 12:15 Actual Procedures p Total Hip Arthroplasty/Anterior Approach(Right) - Heidi Doss MD Physical Therapy Treatment Note M2 PT-IP Current Condition Start: 06/21/19 08:15 Freq: NEEDED Status: Active Protocol: Document 06/22/19 10:53 NFW (Rec: 06/22/19 11:05 NFW [id number]) Physical Therapy Current Condition Precautions Anterior Hip Precautions No Hip Extension,No Hip External Rotation Weight Bearing Status Weight Bearing Status Full Weight Bearing M3 PT-IP Subjective Start: 06/21/19 08:15 Freq: NEEDED Status: Active Protocol: Document 06/22/19 10:53 NFW (Rec: 06/22/19 11:05 NFW [id number]) Subjective Physical Therapy Visit Type Type Treatment Note Visit Start Time 09:12 Visit Stop Time 09:47 Total Visit Minutes 35 Number of POLY OPERATOR Visits 0 Physical Therapy Visit Comments Patient Comments My hip hurts, shouldn't have gone through with surgery. Patient Goals Return home Therapy Pain Assessment Pain When Pain Assessed During Weight Bearing Pain Present Pain Present Pain Reported M4 PT-IP Mobility and Gait Start: 06/21/19 08:15 Freq: NEEDED Status: Active Protocol: Document 06/22/19 10:53 NFW (Rec: 06/22/19 11:05 NFW [id number]) PT-Bed Mobility Assessment Supine to Sit Supine to Sit Minimal Assistance,1 Person Assistance Sit to Supine Sit to Supine Minimal Assistance,1 Person Assistance Scooting Scooting to Edge of Bed Contact Guard Assistance Scooting Up and Down in Bed Standby Assistance PT-Transfer Assessment Sit to and From Stand Sit to and from Stand Contact Guard Assistance, Minimal Assistance,1 Person Assistance,Use of Upper Extremities Equipment Transfer Assistive Device Gait Belt,Front Wheeled Walker Orthotic/Prosthetic Devices or Brace: No Transfers Transfer Destination Bed,Chair Transfer Technique pt ambulated w/ FWW Transfer Ability Level of Assist Minimal Assistance,1 Person Assistance,Use of Upper Extremities Comments Mobility Comments Most difficulty with sitting up from bed. Light assist and instruction required. Used gait belt to assist with RLE. Gait Assessment Gait Gait Assistance Required: Contact Guard Assist,Minimum Assistance Distance (Feet) 120 Able to Maintain Weight Bearing Status Yes During Gait Assistive Devices Assistive Device Gait Belt,Front Wheeled Walker Orthotic/Prosthetic Devices or Brace: No Gait Deviations General Gait Pattern Antalgic,Decreased Stride Length,Decreased Feet Clearance,Flexed Trunk Factors Limiting Gait Function Factors Limiting Gait Function Decreased Activity Tolerance, Decreased Strength,Difficulty Following Directions,Limited Range of Motion,Pain,Poor Balance,Poor Safety Awareness Comments Gait Comments Followed through with ambulation without c/o increase pain. Cuing for equal strides and picking up feet. Stair Climbing Assessment Comments Stair Climbing Comments Goal was to try stairs this am but pt not willing. Informed will try this pm and will need to perform prior to discharge. PT-Balance Assessment Sitting Balance and Reactions Static Sitting Balance Ability Good Dynamic Sitting Balance Ability Fair Standing Balance and Reactions Static Standing Balance Ability Good Dynamic Standing Balance Ability Fair Device Used FWW M5 PT-IP Objective Assessments Start: 06/21/19 08:15 Freq: NEEDED Status: Active Protocol: Document 06/21/19 08:46 JG (Rec: 06/21/19 11:08 JG [id number]) Orientation Orientation/Cognition Level of Alertness Alert Orientation Name,Day of Week,Place, Situation Language Function Ability Hard of Hearing Safety Awareness Decreased Safety Awareness Memory Description No Deficits Noted Comments Pt is mildly hard of hearing. Pt seemed mildly confused during session and required max cuing for use of UE assist during bed mobility and ambulation. Pt required frequent cuing throughout session d/t dec'd safety awareness. Gross Range of Motion Upper Extremity ROM Assessment Within Functional Limits Lower Extremity ROM Assessment Right Impaired Strength Upper Extremity Strength Assessment Within Functional Limits Lower Extremity Strength Assessment Right Impaired Hip 4 Knee 4 Ankle 4 Sensation Assessment Sensation Gross Sensation WNL Muscle Tone Muscle Tone WNL Yes M6 PT-IP Treatment Start: 06/21/19 08:15 Freq: NEEDED Status: Active Protocol: Document 06/22/19 10:53 NFW (Rec: 06/22/19 11:05 NFW [id number]) Physical Therapy Treatment Exercises Exercises Ankle Pumps,Gluteal Sets,Quad Sets,Heel Slides Education Education Provided Precautions,Weight Bearing Status,Post-Op Packet,Safety M7 PT-IP Assessment and Plan Start: 06/21/19 08:15 Freq: NEEDED Status: Active Protocol: Document 06/22/19 10:53 NFW (Rec: 06/22/19 11:05 NFW [id number]) PT Summary Assessment and Plan Potential Status of Condition at Evaluation Evolving Summary Impairments Pain,ROM,Strength,Balance, Cognition,Bed Mobility, Transfers,Gait,Activity Tolerance Assessment Summary Improved distance in ambulation. Continues to struggle with sitting up from supine. Patient does have 3 steps that he needs to manuever. Will try this pm. Goals Bed Mobility Goal Independent Transfer Goal Independent Gait Goal Independent Gait Distance 150 Frequency of Treatment Frequency Of Treatment Twice a Day Treatment Plan Physical Therapy Treatment Plan Bed Mobility Training,Transfer Training,Gait Training, Therapeutic Exercise,Balance Retraining,Post Op Education, Discharge Planning,Hot or Cold Pack,Neuromuscular Re-ed Other Recommendations and Next Treatment Bed mobility. Stair Climbing. Focus In talking with pt's granddaughter he will have to manuever at least three steps to get into their home. She does not feel that the trailer is appropriate for him in the short term (one step into trailer, 3 steps into house). Recommendations To Nursing Amount of Assist Needed 1 Person Assist Discharge Recommendations PT Discharge Recommendations Home with Assistance,Home with 06/02 Assist,Home Health, Outpatient PT
--- NOTE | 2019-06-22 11:38 | CM.DPC ---
DCP Cont: Met w/pt this morning as he was awaiting arrival of his family, and a visit from physical therapy. Pt expects to DC home w/his grand dtr to [place] once medically cleared but he is unsure when that will be. Pt denies needs from this CLINICAL AIDE at this time. According to chart review, therapy team has cleared pt for return home but pt still needs to complete stair training; pt wants outpt PT, CLINICAL AIDE team will r/o HH upon DC, expected today or tomorrow. ANDREEA
--- NOTE | 2019-06-22 13:56 | PT.IPTN ---
Current Diagnoses Unilateral primary osteoarthritis, right hip (06/20/19) Surgery Performed Operation Date: 06/20/19 12:15 Actual Procedures p Total Hip Arthroplasty/Anterior Approach(Right) - Heidi Doss MD Physical Therapy Treatment Note M2 PT-IP Current Condition Start: 06/21/19 08:15 Freq: NEEDED Status: Active Protocol: Document 06/22/19 13:38 NFW (Rec: 06/22/19 13:56 NFW [id number]) Physical Therapy Current Condition Precautions Anterior Hip Precautions No Hip Extension,No Hip External Rotation Weight Bearing Status Weight Bearing Status Full Weight Bearing M3 PT-IP Subjective Start: 06/21/19 08:15 Freq: NEEDED Status: Active Protocol: Document 06/22/19 13:38 NFW (Rec: 06/22/19 13:56 NFW [id number]) Subjective Physical Therapy Visit Type Type Treatment Note Visit Start Time 13:00 Visit Stop Time 13:38 Total Visit Minutes 38 Number of FURNACE CARETAKER Visits 0 Physical Therapy Visit Comments Patient Comments Doing better. Now, pleased that he had surgery performed. Patient Goals Return home to [facility]. Therapy Pain Assessment Pain When Pain Assessed During Weight Bearing Pain Present Pain Present Denied Pain M4 PT-IP Mobility and Gait Start: 06/21/19 08:15 Freq: NEEDED Status: Active Protocol: Document 06/22/19 13:38 NFW (Rec: 06/22/19 13:56 NFW [id number]) PT-Bed Mobility Assessment Supine to Sit Supine to Sit Standby Assistance,1 Person Assistance Sit to Supine Sit to Supine Standby Assistance,1 Person Assistance Scooting Scooting to Edge of Bed Standby Assistance Scooting Up and Down in Bed Standby Assistance PT-Transfer Assessment Sit to and From Stand Sit to and from Stand Standby Assistance,1 Person Assistance,Use of Upper Extremities Equipment Transfer Assistive Device Gait Belt,Front Wheeled Walker Orthotic/Prosthetic Devices or Brace: No Transfers Transfer Destination Bed,Chair Transfer Technique pt ambulated w/ FWW Transfer Ability Level of Assist Contact Guard Assistance,1 Person Assistance,Use of Upper Extremities Comments Mobility Comments Patient's mattress was changed and is much firmer. Significant improvement in getting up and down from bed. Did not need to use gait belt to assist RLE. Gait Assessment Gait Gait Assistance Required: Standby Assistance,1 Person Assist Distance (Feet) 120 Able to Maintain Weight Bearing Status Yes During Gait Assistive Devices Assistive Device Gait Belt,Front Wheeled Walker Orthotic/Prosthetic Devices or Brace: No Gait Deviations General Gait Pattern Decreased Stride Length, Decreased Feet Clearance, Flexed Trunk Factors Limiting Gait Function Factors Limiting Gait Function Decreased Activity Tolerance, Decreased Strength,Limited Range of Motion,Pain,Poor Balance,Poor Safety Awareness Comments Gait Comments SBA with ambulation, cuing for upright posture, equal strides and increase hip and knee flexion at initiation of swing. Stair Climbing Assessment Evaluation Level of Assist On Stairs Contact Guard Assistance,1 Person Assistance Devices Stair Climbing Assistive Devices Straight Cane,Right Railing Technique/Endurance Stair Climbing Direction Ascend and Descend Stair Climbing Technique Step to Step Number of Steps Climbed 3 Stair Climbing Set # Repetitions (reps) 2 Comments Stair Climbing Comments Cuing to remind patient which LE to lead with in ascending or descending stairs. Used right rail and SPC on left with lb and left rail and SPC on right with descension. PT-Balance Assessment Sitting Balance and Reactions Static Sitting Balance Ability Good Dynamic Sitting Balance Ability Fair Standing Balance and Reactions Static Standing Balance Ability Good Dynamic Standing Balance Ability Fair Device Used FWW M5 PT-IP Objective Assessments Start: 06/21/19 08:15 Freq: NEEDED Status: Active Protocol: Document 06/21/19 08:46 JG (Rec: 06/21/19 11:08 JG [id number]) Orientation Orientation/Cognition Level of Alertness Alert Orientation Name,Day of Week,Place, Situation Language Function Ability Hard of Hearing Safety Awareness Decreased Safety Awareness Memory Description No Deficits Noted Comments Pt is mildly hard of hearing. Pt seemed mildly confused during session and required max cuing for use of UE assist during bed mobility and ambulation. Pt required frequent cuing throughout session d/t dec'd safety awareness. Gross Range of Motion Upper Extremity ROM Assessment Within Functional Limits Lower Extremity ROM Assessment Right Impaired Strength Upper Extremity Strength Assessment Within Functional Limits Lower Extremity Strength Assessment Right Impaired Hip 4 Knee 4 Ankle 4 Sensation Assessment Sensation Gross Sensation WNL Muscle Tone Muscle Tone WNL Yes M6 PT-IP Treatment Start: 06/21/19 08:15 Freq: NEEDED Status: Active Protocol: Document 06/22/19 13:38 NFW (Rec: 06/22/19 13:56 NFW [id number]) Physical Therapy Treatment Education Education Provided Precautions,Weight Bearing Status,Post-Op Packet,Safety M7 PT-IP Assessment and Plan Start: 06/21/19 08:15 Freq: NEEDED Status: Active Protocol: Document 06/22/19 13:38 NFW (Rec: 06/22/19 13:56 NFW [id number]) PT Summary Assessment and Plan Potential Rehabilitation Potential Good Status of Condition at Evaluation Evolving Summary Impairments Pain,ROM,Strength,Balance, Coordination,Gait,Activity Tolerance Progress Towards Goals Progressing Toward Goals Assessment Summary Significant improvement with bed mobilities with SBA only. Ambulation with FWW SBA to 120'. Able to ascend and descend 3 steps x2 with handrail and SPC. Cuing needed throughout stairclimbing. Could benefit with one more session of PT before discharge. Goals Bed Mobility Goal Independent Transfer Goal Independent Gait Goal Independent Gait Distance 150 Frequency of Treatment Frequency Of Treatment Twice a Day Treatment Plan Physical Therapy Treatment Plan Bed Mobility Training,Transfer Training,Gait Training, Therapeutic Exercise,Balance Retraining,Post Op Education, Discharge Planning,Hot or Cold Pack,Neuromuscular Re-ed Other Recommendations and Next Treatment Stairclimbing. Wheeled Focus patient down to stairs then had him walk part way back to his room. Recommendations To Nursing Amount of Assist Needed 1 Person Assist Discharge Recommendations PT Discharge Recommendations Home with Assistance,Home with 06/02 Assist,Home Health, Outpatient PT
--- NOTE | 2019-06-22 15:43 | DI.RAD.S_ITS ---
PROCEDURE: XR HIP W PEL IF DONE RT 2V INDICATIONS: pain to rt hip after surgery TECHNIQUE: AP pelvis with lateral view of the right hip. COMPARISON: [facility], CT, CT PEL WO CON, 06/21/2019, 10:36. [facility], CR, XR HIP W PEL IF DONE RT 2V, 06/20/2019, 16:24. FINDINGS: Bones: There is a right total hip prosthesis redemonstrated. Alignment appears unchanged. The femoral head component appears centered in the acetabular cup. No periprosthetic fractures. No new suspicious periprosthetic lucencies. Soft tissues: The visualized bowel gas pattern is normal. There are postsurgical changes within the soft tissues lateral to the right hip. IMPRESSION: 1. No definite periprosthetic fracture or evidence of hardware failure. Dictated by: Miguel Casarez M.D. on 06/22/2019 at 15:16 Approved by: Miguel Casarez M.D. on 06/22/2019 at 15:18
[2019-06-22] MEDS: RIVAROXABAN 10 MG TABLET 20 MG PO (16:52)
[2019-06-22] MEDS: SIMVASTATIN 40 MG TABLET PO (16:53)
[2019-06-22] MEDS: METOPROLOL ER 50 MG TABLET PO (16:53)
[2019-06-23] MEDS: OXYCODONE IR 5 MG TABLET PO ×3 (00:35→13:18)
[2019-06-23 05:57] VITALS: BP 97/65; PULSE 101; RESP 16; TEMP 36.8; O2SAT 96
[2019-06-23 07:30] VITALS: BP 115/68; PULSE 65; RESP 20; TEMP 36.2; O2SAT 94
[2019-06-23] MEDS: DOCUSATE 100 MG CAPSULE PO (08:37)
[2019-06-23] MEDS: POLYETHYLENE GLYCOL 3350 17 GM POWD.PACK PO (08:37)
[2019-06-23] MEDS: ACETAMINOPHEN 325 MG TABLET 650 MG PO (08:37)
[2019-06-23] MEDS: PANTOPRAZOLE 20 MG TABLET PO (08:38)
[2019-06-23] MEDS: SODIUM CHLORIDE 0.9% FLUSH 10 ML IV (08:38)
--- NOTE | 2019-06-23 08:48 | PC.NURSE ---
Patient assisted up to chair this morning for breakfast. Requires moderate assistance with walker and gait belt this morning. Patient complains of moderate pain and soreness to right hip and thigh area, dressing in place is aquacel and remains CDI, denies numbness or tingling, ice placed to thigh per patient request. Medicated per MD order for moderate pain (see MAR). Call light within reach, chair alarm on for safety. Continue to monitor. Anticipate discharge to home today.
--- NOTE | 2019-06-23 10:47 | PT.IPTN ---
Current Diagnoses Unilateral primary osteoarthritis, right hip (06/20/19) Surgery Performed Operation Date: 06/20/19 12:15 Actual Procedures p Total Hip Arthroplasty/Anterior Approach(Right) - Heidi Doss MD Physical Therapy Treatment Note M2 PT-IP Current Condition Start: 06/21/19 08:15 Freq: NEEDED Status: Active Protocol: Document 06/22/19 13:38 NFW (Rec: 06/22/19 13:56 NFW [id number]) Physical Therapy Current Condition Precautions Anterior Hip Precautions No Hip Extension,No Hip External Rotation Weight Bearing Status Weight Bearing Status Full Weight Bearing M3 PT-IP Subjective Start: 06/21/19 08:15 Freq: NEEDED Status: Active Protocol: Document 06/23/19 10:34 CLB (Rec: 06/23/19 13:32 CLB [id number]) Subjective Physical Therapy Visit Type Type Treatment Note Visit Start Time 10:34 Visit Stop Time 10:47 Total Visit Minutes 13 Notes Pt reported pain 5/10 upon arrival and 7/10 upon standing and gait. Number of ORDNANCE ARTIFICER HELPER Visits 1 Physical Therapy Visit Comments Patient Comments Pt wanting to get up and move. Therapy Pain Assessment Pain When Pain Assessed During Mobility Pain Present Pain Present Pain Reported Location Right Hip Intensity 7 Scale Used Numeric (1 - 10) Pain Management Techniques Modification of Treatment,Re- positioning,Timing of Activity with Medications M4 PT-IP Mobility and Gait Start: 06/21/19 08:15 Freq: NEEDED Status: Active Protocol: Document 06/23/19 10:34 CLB (Rec: 06/23/19 13:32 CLB [id number]) PT-Bed Mobility Assessment Supine to Sit Supine to Sit Standby Assistance,1 Person Assistance Scooting Scooting Up and Down in Bed Standby Assistance PT-Transfer Assessment Sit to and From Stand Sit to and from Stand Standby Assistance,1 Person Assistance,Use of Upper Extremities Equipment Transfer Assistive Device Gait Belt,Front Wheeled Walker Orthotic/Prosthetic Devices or Brace: No Transfers Transfer Destination Bed,Chair Transfer Technique pt ambulated w/ FWW Transfer Ability Level of Assist Contact Guard Assistance,1 Person Assistance,Use of Upper Extremities Comments Mobility Comments Pt required cues for hand placement for safety with sit< >stand. Pt able to get up from chair SBA and perform sit- stand SBA. Pt was left in bed with alarm on, SCD's on bilateral LE's with call light and all needs within reach. Gait Assessment Gait Gait Assistance Required: Standby Assistance,1 Person Assist Distance (Feet) 40 Able to Maintain Weight Bearing Status Yes During Gait Assistive Devices Assistive Device Gait Belt,Front Wheeled Walker Orthotic/Prosthetic Devices or Brace: No Gait Deviations General Gait Pattern Decreased Stride Length, Decreased Feet Clearance, Flexed Trunk Factors Limiting Gait Function Factors Limiting Gait Function Decreased Activity Tolerance, Decreased Strength,Limited Range of Motion,Pain,Poor Balance,Poor Safety Awareness Comments Gait Comments Due to increased pain pt refused to ambulate further and wanted to get back to bed. Stair Climbing Assessment Comments Stair Climbing Comments not performed due to increased pain in WB. M5 PT-IP Objective Assessments Start: 06/21/19 08:15 Freq: NEEDED Status: Active Protocol: Document 06/21/19 08:46 JG (Rec: 06/21/19 11:08 JG [id number]) Orientation Orientation/Cognition Level of Alertness Alert Orientation Name,Day of Week,Place, Situation Language Function Ability Hard of Hearing Safety Awareness Decreased Safety Awareness Memory Description No Deficits Noted Comments Pt is mildly hard of hearing. Pt seemed mildly confused during session and required max cuing for use of UE assist during bed mobility and ambulation. Pt required frequent cuing throughout session d/t dec'd safety awareness. Gross Range of Motion Upper Extremity ROM Assessment Within Functional Limits Lower Extremity ROM Assessment Right Impaired Strength Upper Extremity Strength Assessment Within Functional Limits Lower Extremity Strength Assessment Right Impaired Hip 4 Knee 4 Ankle 4 Sensation Assessment Sensation Gross Sensation WNL Muscle Tone Muscle Tone WNL Yes M6 PT-IP Treatment Start: 06/21/19 08:15 Freq: NEEDED Status: Active Protocol: Document 06/22/19 13:38 NFW (Rec: 06/22/19 13:56 NFW [id number]) Physical Therapy Treatment Education Education Provided Precautions,Weight Bearing Status,Post-Op Packet,Safety M7 PT-IP Assessment and Plan Start: 06/21/19 08:15 Freq: NEEDED Status: Active Protocol: Document 06/23/19 10:34 CLB (Rec: 06/23/19 13:32 CLB [id number]) PT Summary Assessment and Plan Summary Impairments Pain,ROM,Strength,Balance, Coordination,Gait,Activity Tolerance Progress Towards Goals Progressing Toward Goals Assessment Summary Pt is doing well with bed mobility, sit<>stand and gait quality but was unwilling to ambulate more than 40ft due to increased pain with gait. Pt refused all ther ex but was agreeable to have SCD's placed on LE's. Goals Bed Mobility Goal Independent Transfer Goal Independent Gait Goal Independent Gait Distance 150 Frequency of Treatment Frequency Of Treatment Twice a Day Treatment Plan Other Recommendations and Next Treatment CG training with daughter Focus Bri this afternoon. Recommendations To Nursing Amount of Assist Needed 1 Person Assist Discharge Recommendations PT Discharge Recommendations Home with Assistance,Home with 06/02 Assist,Home Health, Outpatient PT
--- NOTE | 2019-06-23 10:59 | PM.PN.1 ---
Exam Vital Signs (past 8 hours): - 06/23/19 05:57 06/23/19 07:30 Temperature 98.3 F 97.1 F L Pulse Rate 101 H 65 Respiratory Rate 16 20 Blood Pressure 97/65 115/68 Pulse Oximetry 96 94 Oxygen Delivery Method Room Air Oxygen Flow Rate 0 Objective Labs Result Diagrams: 06/21/19 05:44 Assessment & Plan Assessment & Plan narrative: Patient is admitted after surgery. Patient has been stable and progressing with physical therapy. Patient is neurovascularly intact on exam. Patient has no signs or symptoms of DVT. Patient's dressing is clean dry and intact. Plan for discharge to home today. Quality VTE Deep Vein Thrombosis/Pulmonary Embolism Present on Admission: No
[2019-06-23 12:00] VITALS: BP 120/70; PULSE 70; RESP 17; TEMP 36.6; O2SAT 94
--- NOTE | 2019-06-23 14:44 | PT.IPTN ---
Current Diagnoses Unilateral primary osteoarthritis, right hip (06/20/19) Surgery Performed Operation Date: 06/20/19 12:15 Actual Procedures p Total Hip Arthroplasty/Anterior Approach(Right) - Heidi Doss MD Physical Therapy Treatment Note M2 PT-IP Current Condition Start: 06/21/19 08:15 Freq: NEEDED Status: Active Protocol: Document 06/22/19 13:38 NFW (Rec: 06/22/19 13:56 NFW [id number]) Physical Therapy Current Condition Precautions Anterior Hip Precautions No Hip Extension,No Hip External Rotation Weight Bearing Status Weight Bearing Status Full Weight Bearing M3 PT-IP Subjective Start: 06/21/19 08:15 Freq: NEEDED Status: Active Protocol: Document 06/23/19 14:12 CLB (Rec: 06/23/19 15:16 CLB [id number]) Subjective Physical Therapy Visit Type Type Treatment Note Visit Start Time 14:12 Visit Stop Time 14:44 Total Visit Minutes 32 Number of WOOD DIE MAKER Visits 2 Physical Therapy Visit Comments Patient Comments Pt daughter present for CG training. Pt states he feels much better than this morning. Therapy Pain Assessment Pain When Pain Assessed During Mobility Pain Present Pain Present Pain Reported Location Right Hip Intensity 5 Scale Used Numeric (1 - 10) Pain Management Techniques Modification of Treatment,Re- positioning,Timing of Activity with Medications M4 PT-IP Mobility and Gait Start: 06/21/19 08:15 Freq: NEEDED Status: Active Protocol: Document 06/23/19 14:12 CLB (Rec: 06/23/19 15:16 CLB [id number]) PT-Bed Mobility Assessment Supine to Sit Supine to Sit Standby Assistance,1 Person Assistance Scooting Scooting Up and Down in Bed Standby Assistance PT-Transfer Assessment Sit to and From Stand Sit to and from Stand Standby Assistance,1 Person Assistance,Use of Upper Extremities Equipment Transfer Assistive Device Gait Belt,Front Wheeled Walker Orthotic/Prosthetic Devices or Brace: No Transfers Transfer Destination Bed,Chair Transfer Technique pt ambulated w/ FWW Transfer Ability Level of Assist Contact Guard Assistance,1 Person Assistance,Use of Upper Extremities Comments Mobility Comments Pt continues to need cues for hand placement. Pt requires cues to follow hip precautions and has a difficult time recalling all his precautions. Daughter Bri is aware and understands pts precautions, pt will have 24/7 assist of his three daughters in his home. Pt's daughter Bri will get pt shower chair and has a FWW for pt. Bri states that pt has no stairs to enter his home and has one step to get into his bathroom in the house. Pt can use walker up steps and has room to manuever walker in bathroom. Left pt in chair with call light and all needs within reach, chair alarm on and daughter and son-in-law present. Gait Assessment Gait Gait Assistance Required: Standby Assistance,1 Person Assist Distance (Feet) 100 Able to Maintain Weight Bearing Status Yes During Gait Assistive Devices Assistive Device Gait Belt,Front Wheeled Walker Orthotic/Prosthetic Devices or Brace: No Gait Deviations General Gait Pattern Decreased Stride Length, Decreased Feet Clearance, Flexed Trunk Factors Limiting Gait Function Factors Limiting Gait Function Decreased Activity Tolerance, Decreased Strength,Limited Range of Motion,Pain,Poor Balance,Poor Safety Awareness Comments Gait Comments Pt requires cues to stay inside walker. Pt has antalgic gait but is able to use small step through gait pattern. Pt requires cues while turning to follow hip precautions. Stair Climbing Assessment Evaluation Level of Assist On Stairs Contact Guard Assistance,1 Person Assistance Devices Stair Climbing Assistive Devices Front Wheel Walker Technique/Endurance Stair Climbing Direction Ascend and Descend Stair Climbing Technique Step to Step Number of Steps Climbed 1 Stair Climbing Set # Repetitions (reps) 2 Comments Stair Climbing Comments Pt's daughter Bri states pt has no steps to enter home and has one step into bathroom and pt is able to use FWW. M5 PT-IP Objective Assessments Start: 06/21/19 08:15 Freq: NEEDED Status: Active Protocol: Document 06/21/19 08:46 (Rec: 06/21/19 11:08 [id number]) Orientation Orientation/Cognition Level of Alertness Alert Orientation Name,Day of Week,Place, Situation Language Function Ability Hard of Hearing Safety Awareness Decreased Safety Awareness Memory Description No Deficits Noted Comments Pt is mildly hard of hearing. Pt seemed mildly confused during session and required max cuing for use of UE assist during bed mobility and ambulation. Pt required frequent cuing throughout session d/t dec'd safety awareness. Gross Range of Motion Upper Extremity ROM Assessment Within Functional Limits Lower Extremity ROM Assessment Right Impaired Strength Upper Extremity Strength Assessment Within Functional Limits Lower Extremity Strength Assessment Right Impaired Hip 4 Knee 4 Ankle 4 Sensation Assessment Sensation Gross Sensation WNL Muscle Tone Muscle Tone WNL Yes M6 PT-IP Treatment Start: 06/21/19 08:15 Freq: NEEDED Status: Active Protocol: Document 06/23/19 14:12 CLB (Rec: 06/23/19 15:16 CLB [id number]) Physical Therapy Treatment Exercises Exercises Ankle Pumps,Gluteal Sets,Quad Sets,Supine Hip Abduction Education Education Provided Precautions,Weight Bearing Status,Post-Op Packet,Safety Other Treatments Other Treatment Performed Educated daughter about importance of following hip precautions, getting a shower chair and how to get in and out of car safely. M7 PT-IP Assessment and Plan Start: 06/21/19 08:15 Freq: NEEDED Status: Active Protocol: Document 06/23/19 14:12 CLB (Rec: 06/23/19 15:16 CLB [id number]) PT Summary Assessment and Plan Summary Progress Towards Goals Progressing Toward Goals Assessment Summary Pt is SBA for all mobility with cues to follow hip precautions getting OOB, putting leg out in front of him before sit<>stand and during turns during ambulation . Pt will have 24/7 assist of his three daughters and seem able to d/c with family to assist. Goals Bed Mobility Goal Independent Transfer Goal Independent Gait Goal Independent Gait Distance 150 Frequency of Treatment Frequency Of Treatment Twice a Day Recommendations To Nursing Amount of Assist Needed 1 Person Assist Discharge Recommendations PT Discharge Recommendations Home with Assistance,Home with 24/7 Assist,Home Health, Outpatient PT
--- NOTE | 2019-06-23 15:26 | PC.NURSE ---
Patient discharged to home with his daughter Bri. IV removed intact. Aquacel dressing intact to right hip. discharge instructions and home care handouts reviewed with patient and his daughter. prescription for pain medication given to patients daughter to fill at pharmacy of choice. Patient states he has follow up appointment scheduled. Patient and his daughter state understanding and have no further questions or concerns. Patient instructed to call Dr. Doss's office with questions or concerns, to report any possible signs of infection including fever, chills, n/v, unusual redness or unusual drainage.
== END 2019-06-23 15:31 | disposition home or self-care (01) | DRG 470 ==
PROVIDERS: Admitting Provider Orthopaedic Surgery; Visit Provider Orthopaedic Surgery
PROC: 0SR902Z Replacement of Right Hip Joint with Metal on Polyethylene Synthetic Substitute, Open Approach (ICD-10-PCS; CPT 27130; principal; 2019-06-20 12:15)
DX: M16.11 Unilateral primary osteoarthritis, right hip (principal); I10 Essential (primary) hypertension; E78.5 Hyperlipidemia, unspecified; I48.91 Unspecified atrial fibrillation; Z79.01 Long term (current) use of anticoagulants; M70.61 Trochanteric bursitis, right hip; M47.816 Spondylosis without myelopathy or radiculopathy, lumbar region
CPT/HCPCS: 36415; 72192; 73502; 73503; 76000; 85014; 85018; 97110; 97116; 97162; C1776; C9290; J0690; J2250; J2274; J2704; J3010